=== PATIENT | female | born 1980 | race Caucasian/White ===

== ENCOUNTER 2023-08-20 10:43 | Inpatient (IN) | payer MEDICAID, OTHER, SELFPAY ==
[~2023-08-20] VITALS: Ht 162.6 cm; Wt 78.2 kg
[2023-08-20] MEDS ORDERED: HALOPERIDOL 5MG/ML 1ML VIAL As Ordered ONE (11:10)
[2023-08-20] MEDS ORDERED: LORazepam 2 MG/ML 1ML VIAL As Ordered ONE (11:10)
[2023-08-20 11:37] LABS: HEMATOCRIT 43.1 % (36.0-47.0); HEMOGLOBIN 14.7 g/dl (12.0-15.5); MEAN CORPUSCULAR HEMOGLOBIN 31.9 pg (27.0-33.0); MEAN CORPUSCULAR HGB CONC 34.1 g/dl (32.0-36.5); MEAN CORPUSCULAR VOLUME 93.5 fl (80.0-96.0); PLATELET COUNT, AUTOMATED 300 10^3/uL (150-450); RED BLOOD COUNT 4.61 10^6/uL (4.00-5.40); WHITE BLOOD COUNT 15.6 10^3/uL (4.0-10.0)
[2023-08-20] MEDS: LORazepam 2 MG/ML 1ML VIAL IM ONE (11:56)
[2023-08-20] MEDS: HALOPERIDOL 5MG/ML 1ML VIAL IM ONE (11:56)
[2023-08-20 12:39] LABS: ETHYL ALCOHOL (ETHANOL) < 0.003 % (0.000-0.010)
[2023-08-20 12:41] LABS: ALBUMIN 4.5 G/DL (3.2-5.2); ALKALINE PHOSPHATASE 74 U/L (46-116); ALT/SGPT 23 U/L (7.0-40); AST/SGOT 17 U/L (<34); BILIRUBIN,DIRECT 0.2 MG/DL (<0.4); BILIRUBIN,TOTAL 0.5 MG/DL (0.3-1.2); BLOOD UREA NITROGEN 10 MG/DL (9-23); CALCIUM LEVEL 9.8 MG/DL (8.5-10.1); CARBON DIOXIDE LEVEL 24 MMOL/L (20-31); CHLORIDE LEVEL 103 MMOL/L (98-107); CREATININE FOR GFR 0.73 MG/DL (0.55-1.30); GLOMERULAR FILTRATION RATE > 60.0 (>58); GLUCOSE, FASTING 137 MG/DL (60-100); POTASSIUM SERUM 3.4 MMOL/L (3.5-5.1); SALICYLATE LEVEL < 3.0 MG/DL (<30); SODIUM LEVEL 136 MMOL/L (136-145); TOTAL PROTEIN 7.4 G/DL (5.7-8.2)
[2023-08-20 12:43] LABS: THYROID STIMULATING HORMONE 1.221 uIU/ML (0.55-4.78)
[2023-08-20 12:54] LABS: HCG, SERUM QUALITATIVE NEGATIVE (NEGATIVE)
[2023-08-20 13:04] LABS: AMPHETAMINES LEVEL URINE NEGATIVE (NEGATIVE); BARBITURATES URINE NEGATIVE (NEGATIVE); BENZODIAZEPINES URINE NEGATIVE (NEGATIVE); COCAINE METABOLITE URINE NEGATIVE (NEGATIVE); METHADONE URINE NEGATIVE (NEGATIVE); OPIATES URINE NEGATIVE (NEGATIVE)
[2023-08-20 13:05] LABS: CANNABINOIDS URINE NEGATIVE (NEGATIVE); PHENCYCLIDINE URINE NEGATIVE (NEGATIVE)
[2023-08-20] MEDS: POTASSIUM CHLORIDE 10MEQ SR TABLET PO ONE (16:46)
[2023-08-20] MEDS ORDERED: HOME MED LIST COMPLETE! XX SCH (17:15)
[2023-08-20] MEDS ORDERED: ACETAMINOPHEN TAB 650MG DOSE (2X325MG) PO PRN (18:35)
[2023-08-20] MEDS ORDERED: MOM 30ML SUSPENSION UDC PO PRN (18:35)
[2023-08-20] MEDS ORDERED: IBUPROFEN 400MG TAB PO PRN (18:35)
[2023-08-20 22:00] VITALS: BP 113/78; TEMP 97.2; O2SAT 96
[2023-08-20] MEDS: traZODone 50 MG TAB PO PRN (22:22)
[2023-08-20] MEDS: diphenhydrAMINE 25MG CAP PO PRN (22:22)
[2023-08-21] MEDS: ALBUTEROL 90 MCG/ACT 8GM HFA INHALER INH PRN (05:04)
[2023-08-21 06:17] VITALS: BP 140/96; TEMP 97.7; O2SAT 97
[2023-08-21] MEDS ORDERED: NAPROXEN 250 MG TAB PO PRN (14:20)
[2023-08-21] MEDS: NAPROXEN 250 MG TAB PO ONE (15:01)
[2023-08-21 15:55] VITALS: BP 134/90; TEMP 98; O2SAT 95
[2023-08-21] MEDS: BACITRACIN OINTMENT 30GM TUBE TOP SCH (17:09)
[2023-08-21] MEDS: QUEtiapine FUMARATE 25 MG TAB PO SCH (20:08)
[2023-08-21] MEDS: LORazepam 0.5 MG TAB PO PRN (20:09)
[2023-08-21] MEDS: MAALOX 30 ML SUSP *UDC PO PRN (22:48)
[2023-08-21] MEDS: NICOTINE 7 MG/24 HR TRANSDERMAL TD SCH (22:55)
[2023-08-22 06:08] VITALS: BP 148/98; TEMP 97.7; O2SAT 97
[2023-08-22 15:49] VITALS: BP 136/86; TEMP 97.8; O2SAT 98
[2023-08-23 06:10] VITALS: BP 131/92; TEMP 97.2
[2023-08-23 17:45] VITALS: BP 117/82; TEMP 97.6
[2023-08-24 06:28] VITALS: BP 129/81; TEMP 97.5; O2SAT 96
[2023-08-24] MEDS ORDERED: QUET1TAB17 PO (09:39)
[2023-08-24] MEDS ORDERED: ATIV1TAB10 PO (09:48)
== END 2023-08-24 12:15 | disposition home or self-care (01) | DRG 751 ==
LOC: EDBD 10:43 → M ED 10:43 → M ED INP 18:32 → M PSY 21:58
PROVIDERS: ADMIT Psychiatry & Neurology Psychiatry; ATTEND Student in an Organized Health Care Education/Training Program
DX: F23 Brief psychotic disorder (principal); G61.0 Guillain-Barre syndrome; Z91.148 Patient's other noncompliance with medication regimen for other reason; F41.8 Other specified anxiety disorders; Z91.51 Personal history of suicidal behavior; Z81.3 Family history of other psychoactive substance abuse and dependence; T42.4X6A Underdosing of benzodiazepines, initial encounter; E87.6 Hypokalemia; T38.5X6A Underdosing of other estrogens and progestogens, initial encounter